=== PATIENT | male | born 1985 | race Caucasian/White ===

== ENCOUNTER 2020-06-10 16:35 | Emergency (ER) | payer OTHER ==
[~2020-06-10] VITALS: Ht 188 cm; Wt 106.1 kg
[2020-06-10 16:48] VITALS: BP 134/83
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
--- NOTE | 2020-06-10 17:06 | NUR ---
DEZ BARROS AT BEDSIDE
[2020-06-10] MEDS ORDERED: KETOROLAC 60 MG/2 ML VIAL IM ONE (17:10)
[2020-06-10] MEDS ORDERED: ACETAMINOPHEN 325 MG TAB PO ONE (17:20)
--- NOTE | 2020-06-10 17:31 | NUR ---
rad at bedside
[2020-06-10] MEDS ORDERED: HYDROcodone/APAP 5/325 MG 1 TAB TAB PO ONE (17:50)
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
[2020-06-10] MEDS ORDERED: ACET-8386 PO (18:46)
--- NOTE | 2020-06-10 18:50 | NUR ---
PT BACK TO CHAIR FOR TREATMENT.
[2020-06-10 19:09] VITALS: BP 134/83
--- NOTE | 2020-06-10 19:10 | NUR ---
PT PLACED IN LEFT POSTERIOR LONG ARM SPINT AND PLACED IN LEFT ARM SLING. PT CMS WNL BEFORE AND AFTER RN NOTIFIED.
--- NOTE | 2020-06-10 19:10 | NUR ---
Patient discharged with v/s stable. Written and verbal after care instructions given and explained. Patient alert, oriented and verbalized understanding of instructions. Ambulatory with steady gait. All questions addressed prior to discharge. ID band removed. Patient advised to follow up with PMD. Rx of hydrocodone/acetaminophen 5/325mg given. Patient educated on indication of medication including possible reaction and side effects. Opportunity to ask questions provided and answered.
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
== END 2020-06-10 19:09 | disposition home or self-care (01) ==
LOC: MED 16:35
DX: S52.022A Displaced fracture of olecranon process without intraarticular extension of left ulna, initial encounter for closed fracture (principal); F17.210 Nicotine dependence, cigarettes, uncomplicated; Z79.899 Other long term (current) drug therapy; W18.39XA Other fall on same level, initial encounter; Y93.89 Activity, other specified; Y92.89 Other specified places as the place of occurrence of the external cause; Y99.8 Other external cause status
CPT/HCPCS: 29105; 29515; 73080; 99283; J1885